=== PATIENT | male | born 1955 | race Caucasian/White ===

== ENCOUNTER 2021-10-07 14:41 | Emergency (ER) | payer OTHER ==
[2021-10-07 15:57] LABS: INR 1.38 (0.9-1.2); PROTHROMBIN TIME 16.3 SECONDS (11.8-13.4)
[2021-10-07 15:58] LABS: PTT 30.3 SECONDS (24.4-34.7)
[2021-10-07 16:03] LABS: LACTIC ACID 1.3 mmol/L (0.4-1.9)
[2021-10-07 16:06] LABS: ALKALINE PHOSHATASE 101 U/L (46-116); ALT 34 U/L (16-63); AST 65 U/L (15-37); BILIRUBIN - TOTAL 1.6 mg/dL (0.2-1.0); BUN 8 mg/dL (7-18); BUN/CREAT RATIO (CALC) 12.9 RATIO; CHLORIDE 99 mmol/L (98-107); CO2 (BICARBONATE) 25 mmol/L (21-32); CREATININE 0.62 mg/dL (0.67-1.17); GLOBULIN (CALCULATION) 3.6 g/dL; GLUCOSE 172 mg/dL (74-106); LIPASE 148 U/L (73-393); MAGNESIUM 1.3 mg/dL (1.8-2.4); POTASSIUM 3.8 mmol/L (3.5-5.1); TOTAL PROTEIN 6.6 g/dL (6.4-8.2)
[2021-10-07 16:07] LABS: C-REACTIVE PROTEIN < 0.20 mg/dL (<=0.90)
[2021-10-07 16:18] LABS: BILIRUBIN 1+ mg/dL (NEGATIVE); BLOOD NEGATIVE Ery/uL (NEGATIVE); CLARITY CLEAR (CLEAR); COLOR YELLOW (YELLOW); GLUCOSE (U) NORMAL (NORMAL); LEUKOCYTES NEGATIVE Leu/uL (NEGATIVE); NITRITE NEGATIVE (NEGATIVE); PROTEIN 1+ mg/dL (NEGATIVE); SPECIFIC GRAVITY >=1.030 (1.001-1.030); UROBILINOGEN 0.2 mg/dL (0.2-1.0)
[2021-10-07 16:22] LABS: AMPHETAMINES POSITIVE (NEGATIVE); BARBITURATES NEGATIVE (NEGATIVE); ECSTASY (MDMA) NEGATIVE (NEGATIVE); MARIJUANA (THC) NEGATIVE (NEGATIVE); METHADONE NEGATIVE (NEGATIVE); OPIATES NEGATIVE (NEGATIVE); OXYCODONE NEGATIVE (NEGATIVE)
[2021-10-07 16:26] LABS: MUCOUS LARGE; URINARY WBC RARE
[2021-10-07 19:30] LABS: HCT 29.4 % (42.0-52.0); HGB 8.4 g/dl (13.2-18.0); MCH 20.9 pg (25.0-31.0); MCHC 28.6 g/dL (32.0-36.0); MCV 73.1 fL (78.0-100.0); MPV 9.7 fL (6.0-9.5); RBC 4.02 M/uL (4.70-6.00)
[2021-10-07 19:36] LABS: WBC 1.9 K/uL (4.0-10.5)
== END 2021-10-07 22:33 | disposition home or self-care (01) ==
LOC: FER 14:41
PROVIDERS: Emergency Medicine
DX: E86.0 Dehydration (principal); D61.818 Other pancytopenia; R53.1 Weakness; Z20.822 Contact with and (suspected) exposure to COVID-19
CPT/HCPCS: 36415; 70450; 71260; 80053; 80305; 81001; 82140; 83605; 83690; 83735; 84145; 84439; 84443; 84484; 85610; 85730; 86140; 87040; 93005; J3411; J3475; J7030; Q9967; U0002